=== PATIENT | male | born 1945 | race Caucasian/White ===

== ENCOUNTER 2016-11-15 13:39 | Day surgery (SDC) | payer MEDICARE, BC ==
[2016-11-15] MEDS ORDERED: TRIAMCINOLONE ACETONIDE 40 MG/ML SUS ONE (14:22)
[2016-11-15 14:57] VITALS: BP 127/57; PULSE 64; RESP 16; TEMP 98.5; O2SAT 96
== END 2016-11-15 15:08 | disposition home or self-care (01) | DRG 552 ==
LOC: SURG 13:39
PROVIDERS: ATTEND Nurse Anesthetist, Certified Registered
DX: M48.06 Spinal stenosis, lumbar region (principal)
CPT/HCPCS: J3300

== ENCOUNTER 2017-01-28 22:44 | Inpatient (IN) | payer MEDICARE, BC ==
[2017-01-28] MEDS ORDERED: LIDOCAINE HCL 2% (VISCOUS) 20 ML SOL MT ONE (23:19)
[2017-01-28] MEDS ORDERED: ALUMINUM/MAGNESIUM 30 ML SUS PO ONE (23:19)
[2017-01-28] MEDS ORDERED: LIDOCAINE HCL 2% (VISCOUS) 20 ML SOL ONE (23:21)
[2017-01-28] MEDS ORDERED: ALUMINUM/MAGNESIUM 30 ML SUS ONE (23:21)
[2017-01-28 23:38] LABS: BASOPHILS % (AUTO) 0 % (0-3); EOSINOPHILS % (AUTO) 0 % (0-9); HEMATOCRIT 36 % (39-53); MEAN CORPUSCULAR HGB CONC 35.2 gm/dl (32.0-36.0); MONOCYTES % (AUTO) 5.9 % (0-12); NEUTROPHILS % (AUTO) 83.7 % (37-80)
[2017-01-28 23:43] LABS: MEAN CORPUSCULAR VOLUME 81 fL (80-100)
[2017-01-28 23:55] LABS: ALBUMIN 3.7 gm/dl (3.4-5.0); CALCIUM 9.3 mg/dl (8.5-10.1); POTASSIUM 4.6 mMol/L (3.5-5.1)
[2017-01-29] MEDS ORDERED: HYDROMORPHONE HCL 2 MG/ML SOL IV ONE (00:34)
[2017-01-29] MEDS ORDERED: HYDROMORPHONE HCL 2 MG/ML SOL ONE (00:35)
[2017-01-29] MEDS: SODIUM CHLORIDE 0.9% FLUSH 10 ML SOL IV PRN ×3 (00:45→21:11)
[2017-01-29] MEDS: SODIUM CHLORIDE 0.9% 1000ML 1,000 ML IV SCH ×4 (00:45→16:54)
[2017-01-29] MEDS ORDERED: HYDROMORPHONE HCL 2 MG/ML SOL IV PRN (01:00)
[2017-01-29] MEDS ORDERED: ONDANSETRON HCL 4 MG/2 ML SOL IV PRN (01:01)
[2017-01-29 07:06] LABS: BASOPHILS % (AUTO) 1 % (0-3); EOSINOPHILS % (AUTO) 1 % (0-9); HEMATOCRIT 34 % (39-53); MEAN CORPUSCULAR HGB CONC 35.1 gm/dl (32.0-36.0); MEAN CORPUSCULAR VOLUME 82 fL (80-100); MONOCYTES % (AUTO) 6.3 % (0-12); NEUTROPHILS % (AUTO) 75.1 % (37-80)
[2017-01-29 07:14] LABS: ALBUMIN 3.4 gm/dl (3.4-5.0); CALCIUM 8.5 mg/dl (8.5-10.1)
[2017-01-29] MEDS: PANTOPRAZOLE SODIUM 40 MG/10 ML PDS IV SCH (09:19)
[2017-01-29] MEDS: LOSARTAN POTASSIUM 50 MG TAB PO SCH (09:19)
[2017-01-29] MEDS ORDERED: POLYETHYLENE GLYCOL 17 GM/1 TBS PDS PO PRN (10:01)
[2017-01-29] MEDS: Non-Formulary Medication MISC (Carbidopa/Levodopa 25/100 2 TAB) PO SCH ×2 (10:24→13:04)
[2017-01-29] MEDS: AMANTADINE 100 MG CAP PO SCH ×2 (10:25→21:05)
[2017-01-29] MEDS: CARBIDOPA/LEVODOPA 25/100 TAB PO SCH ×2 (16:58→21:06)
[2017-01-29] MEDS ORDERED: HYDROMORPHONE 1 MG/ML SYRINGE IV PRN (18:16)
[2017-01-29] MEDS: ATENOLOL 25 MG TAB PO SCH (21:09)
[2017-01-29] MEDS: SERTRALINE HYDROCHLORIDE 50 MG TAB PO SCH (21:09)
[2017-01-29] MEDS ORDERED: TRAZODONE HYDROCHLORIDE 50 MG TAB PO PRN (21:24)
[2017-01-30] MEDS: SODIUM CHLORIDE 0.9% 1000ML 1,000 ML IV SCH ×2 (01:26→10:35)
[2017-01-30 07:33] LABS: CALCIUM 8.5 mg/dl (8.5-10.1); POTASSIUM 4.2 mMol/L (3.5-5.1)
[2017-01-30 07:35] LABS: BASOPHILS % (AUTO) 1 % (0-3); EOSINOPHILS % (AUTO) 3 % (0-9); HEMATOCRIT 32 % (39-53); MEAN CORPUSCULAR HGB CONC 34.2 gm/dl (32.0-36.0); MEAN CORPUSCULAR VOLUME 82 fL (80-100); MONOCYTES % (AUTO) 9.4 % (0-12)
[2017-01-30] MEDS: CARBIDOPA/LEVODOPA 25/100 TAB PO SCH ×4 (09:28→20:32)
[2017-01-30] MEDS: LOSARTAN POTASSIUM 50 MG TAB PO SCH (09:29)
[2017-01-30] MEDS: AMANTADINE 100 MG CAP PO SCH ×2 (09:29→20:33)
[2017-01-30] MEDS: CYCLOBENZAPRINE 10 MG TAB PO SCH (09:35)
[2017-01-30] MEDS: PANTOPRAZOLE SODIUM 40 MG/10 ML PDS IV SCH (09:35)
[2017-01-30] MEDS ORDERED: LOSARTAN POTASSIUM 50 MG TAB PO ONE (17:43)
[2017-01-30] MEDS: ATENOLOL 25 MG TAB PO SCH (20:33)
[2017-01-30] MEDS: SERTRALINE HYDROCHLORIDE 50 MG TAB PO SCH (20:34)
[2017-01-31 00:17] VITALS: PULSE 78
[2017-01-31 07:24] LABS: BASOPHILS % (AUTO) 1 % (0-3); EOSINOPHILS % (AUTO) 3 % (0-9); HEMATOCRIT 32 % (39-53); MEAN CORPUSCULAR HGB CONC 34.1 gm/dl (32.0-36.0); MEAN CORPUSCULAR VOLUME 82 fL (80-100); MONOCYTES % (AUTO) 9.1 % (0-12); NEUTROPHILS % (AUTO) 69.5 % (37-80)
[2017-01-31 07:38] LABS: ALBUMIN 3.2 gm/dl (3.4-5.0); CALCIUM 8.8 mg/dl (8.5-10.1); POTASSIUM 3.8 mMol/L (3.5-5.1)
[2017-01-31] MEDS ORDERED: LOSARTAN POTASSIUM 50 MG TAB PO SCH (07:48)
[2017-01-31 07:53] VITALS: BP 149/75; RESP 20; TEMP 97.8; O2SAT 94
[2017-01-31] MEDS: CARBIDOPA/LEVODOPA 25/100 TAB PO SCH (08:31)
[2017-01-31] MEDS: CYCLOBENZAPRINE 10 MG TAB PO SCH (08:31)
[2017-01-31] MEDS: AMANTADINE 100 MG CAP PO SCH (08:32)
[2017-01-31] MEDS: PANTOPRAZOLE SODIUM 40 MG/10 ML PDS IV SCH (08:36)
[2017-01-31 08:55] LABS: LDL CHOLESTEROL,CALCULATED 56.4 mg/dl (50-130)
== END 2017-01-31 12:20 | disposition home or self-care (01) | DRG 440 ==
LOC: ED 22:44 → ACUTE CARE 01-29 00:53
PROVIDERS: ADMIT Family Medicine; ATTEND Family Medicine
DX: K85.90 Acute pancreatitis without necrosis or infection, unspecified (principal); I10 Essential (primary) hypertension; N18.3 Chronic kidney disease, stage 3 (moderate); I12.9 Hypertensive chronic kidney disease with stage 1 through stage 4 chronic kidney disease, or unspecified chronic kidney disease; M48.06 Spinal stenosis, lumbar region
CPT/HCPCS: 36415; 74177; 80053; 80061; 82150; 82962; 83880; 84484; 85025; 93005; 96374; 99222; 99284; J1170; J2405; Q9967; A6232

== ENCOUNTER 2017-02-02 09:58 | Inpatient (IN) | payer MEDICARE, BC ==
[2017-02-02] MEDS ORDERED: SODIUM CHLORIDE 0.9% 500 ML 500 ML IV ONE (11:30)
[2017-02-02] MEDS ORDERED: AMLODIPINE 5 MG TAB ONE (13:19)
[2017-02-02] MEDS ORDERED: HYDRALAZINE HYDROCHLORIDE 20 MG/ML SOL IV ONE (14:24)
[2017-02-02] MEDS ORDERED: HYDROMORPHONE 1 MG/ML SYRINGE IV PRN (14:45)
[2017-02-02] MEDS: SODIUM CHLORIDE 0.9% FLUSH 10 ML SOL IV SCH (16:42)
[2017-02-02] MEDS: SODIUM CHLORIDE 0.9% 500 ML 500 ML IV SCH ×2 (16:42→18:17)
[2017-02-02] MEDS ORDERED: CARBIDOPA/LEVODOPA 25/100 TAB PO SCH (17:00)
[2017-02-02] MEDS ORDERED: Non-Formulary Medication MISC (Carbidopa/Levodopa 25/100 2 TAB) PO SCH (17:00)
[2017-02-02] MEDS: SODIUM CHLORIDE 0.9% 1000ML 1,000 ML IV SCH (19:25)
[2017-02-02] MEDS: ATENOLOL 25 MG TAB PO SCH (20:43)
[2017-02-02] MEDS: CARBIDOPA/LEVODOPA 25/100 TAB PO SCH (20:44)
[2017-02-02] MEDS ORDERED: AMANTADINE 100 MG CAP PO SCH (21:00)
[2017-02-03] MEDS: SODIUM CHLORIDE 0.9% FLUSH 10 ML SOL IV SCH ×3 (00:54→14:51)
[2017-02-03] MEDS: SODIUM CHLORIDE 0.9% 1000ML 1,000 ML IV SCH (05:30)
[2017-02-03] MEDS: CARBIDOPA/LEVODOPA 25/100 TAB PO SCH ×4 (05:34→20:53)
[2017-02-03] MEDS: AMANTADINE 100 MG CAP PO SCH ×2 (05:35→11:25)
[2017-02-03 07:28] LABS: BASOPHILS % (AUTO) 1 % (0-3); EOSINOPHILS % (AUTO) 4 % (0-9); HEMATOCRIT 34 % (39-53); MEAN CORPUSCULAR HGB CONC 35.6 gm/dl (32.0-36.0); MONOCYTES % (AUTO) 9.7 % (0-12); NEUTROPHILS % (AUTO) 69.7 % (37-80)
[2017-02-03 07:30] LABS: MEAN CORPUSCULAR VOLUME 80 fL (80-100)
[2017-02-03 07:45] LABS: ALBUMIN 3.1 gm/dl (3.4-5.0); CALCIUM 9.3 mg/dl (8.5-10.1); POTASSIUM 4.1 mMol/L (3.5-5.1)
[2017-02-03] MEDS: LOSARTAN POTASSIUM 50 MG TAB PO SCH (09:00)
[2017-02-03] MEDS ORDERED: AMLODIPINE 5 MG TAB PO ONE (12:42)
[2017-02-03] MEDS: APAP/HYDROCODONE 325/5 TAB PO PRN (18:36)
[2017-02-03] MEDS: ATENOLOL 25 MG TAB PO SCH (20:54)
[2017-02-04] MEDS: SODIUM CHLORIDE 0.9% FLUSH 10 ML SOL IV SCH ×3 (01:01→14:21)
[2017-02-04] MEDS: APAP/HYDROCODONE 325/5 TAB PO PRN ×2 (01:01→06:52)
[2017-02-04] MEDS: AMANTADINE 100 MG CAP PO SCH ×2 (06:51→10:31)
[2017-02-04] MEDS: CARBIDOPA/LEVODOPA 25/100 TAB PO SCH ×4 (06:52→21:29)
[2017-02-04 07:38] LABS: CALCIUM 9.4 mg/dl (8.5-10.1); POTASSIUM 3.8 mMol/L (3.5-5.1)
[2017-02-04] MEDS: LOSARTAN POTASSIUM 50 MG TAB PO SCH (10:30)
[2017-02-04] MEDS: SODIUM CHLORIDE 0.9% 1000ML 1,000 ML IV SCH ×3 (10:37→23:06)
[2017-02-04] MEDS ORDERED: DIPHENHYDRAMINE 25 MG CAP PO ONE (21:09)
[2017-02-04] MEDS: TRAZODONE HYDROCHLORIDE 50 MG TAB PO PRN (21:27)
[2017-02-04] MEDS: ATENOLOL 25 MG TAB PO SCH (21:28)
[2017-02-05] MEDS: SODIUM CHLORIDE 0.9% FLUSH 10 ML SOL IV SCH ×4 (01:58→23:02)
[2017-02-05] MEDS: SODIUM CHLORIDE 0.9% 1000ML 1,000 ML IV SCH ×4 (05:56→20:20)
[2017-02-05] MEDS: AMANTADINE 100 MG CAP PO SCH ×2 (06:57→10:33)
[2017-02-05] MEDS: CARBIDOPA/LEVODOPA 25/100 TAB PO SCH ×4 (06:57→22:01)
[2017-02-05 07:14] LABS: BASOPHILS % (AUTO) 2 % (0-3); EOSINOPHILS % (AUTO) 6 % (0-9); HEMATOCRIT 32 % (39-53); MEAN CORPUSCULAR HGB CONC 34.4 gm/dl (32.0-36.0); MONOCYTES % (AUTO) 10.2 % (0-12); NEUTROPHILS % (AUTO) 60.6 % (37-80)
[2017-02-05 07:28] LABS: MEAN CORPUSCULAR VOLUME 81 fL (80-100)
[2017-02-05 07:30] LABS: CALCIUM 8.9 mg/dl (8.5-10.1); POTASSIUM 4.4 mMol/L (3.5-5.1)
[2017-02-05] MEDS: LOSARTAN POTASSIUM 50 MG TAB PO SCH (09:00)
[2017-02-05] MEDS ORDERED: SALINE NAS PRN (10:51)
[2017-02-05] MEDS: TRAZODONE HYDROCHLORIDE 50 MG TAB PO PRN (22:00)
[2017-02-05] MEDS: ATENOLOL 25 MG TAB PO SCH (22:00)
[2017-02-06] MEDS: SODIUM CHLORIDE 0.9% 1000ML 1,000 ML IV SCH ×2 (02:56→09:04)
[2017-02-06] MEDS: CARBIDOPA/LEVODOPA 25/100 TAB PO SCH ×2 (06:49→10:25)
[2017-02-06] MEDS: AMANTADINE 100 MG CAP PO SCH ×2 (06:51→10:26)
[2017-02-06] MEDS: SODIUM CHLORIDE 0.9% FLUSH 10 ML SOL IV SCH (06:51)
[2017-02-06 07:15] LABS: BASOPHILS % (AUTO) 1 % (0-3); EOSINOPHILS % (AUTO) 4 % (0-9); HEMATOCRIT 30 % (39-53); MEAN CORPUSCULAR HGB CONC 34.5 gm/dl (32.0-36.0); MONOCYTES % (AUTO) 8.9 % (0-12); NEUTROPHILS % (AUTO) 64.2 % (37-80)
[2017-02-06 07:16] LABS: MEAN CORPUSCULAR VOLUME 81 fL (80-100)
[2017-02-06 07:18] LABS: ALBUMIN 2.8 gm/dl (3.4-5.0); CALCIUM 8.5 mg/dl (8.5-10.1); POTASSIUM 3.8 mMol/L (3.5-5.1)
[2017-02-06] MEDS ORDERED: AMLODIPINE 5 MG TAB PO SCH (09:00)
[2017-02-06 09:04] VITALS: BP 167/66; PULSE 63; RESP 20; TEMP 97.2; O2SAT 95
[2017-02-06] MEDS: LOSARTAN POTASSIUM 50 MG TAB PO SCH (09:05)
== END 2017-02-06 14:10 | disposition home or self-care (01) ==
LOC: UNDOADMIN 09:58 → ACUTEOP 09:58 → ACUTE CARE 09:58 → EDSTATUS 10:18
PROVIDERS: ADMIT Family Medicine; ATTEND Family Medicine
DX: K85.90 Acute pancreatitis without necrosis or infection, unspecified (principal); G20 Parkinson's disease; N18.2 Chronic kidney disease, stage 2 (mild); I12.9 Hypertensive chronic kidney disease with stage 1 through stage 4 chronic kidney disease, or unspecified chronic kidney disease
CPT/HCPCS: 36415; 80053; 82150; 85025; 93012; J0360